=== PATIENT | female | born 1960 | race Caucasian/White ===

== ENCOUNTER 2025-05-13 02:16 | Emergency (ER) | payer MEDICARE, OTHER ==
[~2025-05-13] VITALS: Ht 152.4 cm; Wt 90.9 kg
[2025-05-13] MEDS ORDERED: PANT-31 PO (02:23)
[2025-05-13] MEDS ORDERED: FLUT1BLS3 IH (02:23)
[2025-05-13] MEDS ORDERED: KETO-99 OU (02:31)
[2025-05-13] MEDS ORDERED: [UNRECOGNIZED DRUG - CODE] SQ (02:31)
[2025-05-13] MEDS ORDERED: TIRZ10VI SQ (02:32)
[2025-05-13] MEDS ORDERED: GABA-1201 PO (02:34)
[2025-05-13] MEDS: IPRATROPIUM BROMIDE 0.5 MG/2.5 ML NEB SOLUTION NEB ONE (02:34)
[2025-05-13] MEDS: ALBUTEROL SULFATE 2.5 MG/0.5 ML NEB SOLUTION NEB ONE (02:34)
[2025-05-13] MEDS ORDERED: MAGN400T7 PO (02:35)
[2025-05-13] MEDS ORDERED: RAME8TAB8 PO (02:36)
[2025-05-13] MEDS ORDERED: [UNRECOGNIZED DRUG - CODE] PO (02:36)
[2025-05-13 02:56] VITALS: TEMP 97.605248
[2025-05-13 03:04] LABS: PLATELET COUNT (AUTO) 192 K/uL (150-450); RED BLOOD CELL COUNT(AUTO) 4.55 MIL/uL (4.00-5.20); RED CELL DISTRIBUTION WIDTH 15.9 % (11.5-14.5); WHITE BLOOD COUNT (AUTO) 5.2 K/uL (4.5-11.0)
[2025-05-13 03:44] LABS: CALCIUM, TOTAL 9.1 mg/dL (8.8-10.5); CREATININE 1.20 mg/dL (0.60-1.30); GLOMERULAR FILTR. RATE CALC 46 mL/min (>60); GLUCOSE,RANDOM 98 mg/dL (70-110); SODIUM SERUM 138 mmol/L (136-145); UREA NITROGEN, BLOOD 8 mg/dL (7-18)
[2025-05-13 03:45] LABS: TROPONIN I-HIGH SENSITIVITY 6 ng/L (<51)
[2025-05-13 05:05] VITALS: BP 119/80; PULSE 74; RESP 16; O2SAT 96
[2025-05-13] MEDS ORDERED: PRED-554 PO (05:12)
== END 2025-05-13 08:05 | disposition home or self-care (01) ==
LOC: EMS 02:16
DX: J44.1 Chronic obstructive pulmonary disease with (acute) exacerbation (principal); E11.9 Type 2 diabetes mellitus without complications; Z86.73 Personal history of transient ischemic attack (TIA), and cerebral infarction without residual deficits; Z88.6 Allergy status to analgesic agent; Z79.01 Long term (current) use of anticoagulants
CPT/HCPCS: 99284; 71045; 80048; 83880; 84484; 85025; 36415; 94640; 93005; J7512; J7613